=== PATIENT | female | born 1980 | race Caucasian/White ===

== ENCOUNTER → 2020-08-16 | Day surgery (SDC) | payer OTHER | END | disposition home or self-care (01) | LOC: FMAMMOTONE 08:36 | PROVIDERS: ATTEND Physician Assistant | PROC: 0HBU3ZX Excision of Left Breast, Percutaneous Approach, Diagnostic (ICD-10-PCS; principal; 2020-08-16) | DX: R92.1 Mammographic calcification found on diagnostic imaging of breast (principal); Z53.8 Procedure and treatment not carried out for other reasons | CPT/HCPCS: 19081 ==